=== PATIENT | male | born 1965 | race Caucasian/White ===

== ENCOUNTER 2021-06-24 23:41 | Emergency (ER) | payer OTHER ==
[~2021-06-24] VITALS: Ht 182.9 cm; Wt 79.4 kg
[~2021-06-24 23:41] MED LIST: CYCL-289 PO; CYCL100C PO; DIAZ10TA4 PO; GABA600T12 PO; OLAN5TAB3 PO; PRED5TAB PO; SERT100T PO
--- NOTE | 2021-06-24 23:51 | NUR ---
BIBRA C/O MECH FALL ADMITS TO ALCOHOL USE. +LAC ON RIGHT EAR AND DEFORMITY TO R WRIST. PT IS BREATHING EVEN AND UNLABORED PLACED ON MONITOR. MD WAS AT THE BEDSIDE FOR EVAL.
--- NOTE | 2021-06-25 00:27 | NUR ---
PT GOING TO CT
--- NOTE | 2021-06-25 03:05 | NUR ---
pt sleeping comfortably easily arousable, breathing even and unalbored. all VSS.
[2021-06-25] MEDS ORDERED: HYDR-3972 PO (05:02)
--- NOTE | 2021-06-25 05:10 | NUR ---
Patient discharged to home in stable condition. Written and verbal after care instructions given. Patient verbalizes understanding of instruction. Pt ambulated safely and was picked up by mother.
[2021-06-25 05:11] VITALS: BP 142/77
== END 2021-06-25 05:12 | disposition home or self-care (01) ==
LOC: ER 23:43
DX: S52.591A Other fractures of lower end of right radius, initial encounter for closed fracture (principal); F10.129 Alcohol abuse with intoxication, unspecified; R47.81 Slurred speech; Z60.2 Problems related to living alone; Z79.899 Other long term (current) drug therapy; W19.XXXA Unspecified fall, initial encounter; Y93.89 Activity, other specified; Y92.89 Other specified places as the place of occurrence of the external cause; Y99.8 Other external cause status; Y90.9 Presence of alcohol in blood, level not specified
CPT/HCPCS: 29125; 70450; 73110; 99284; A6403

== ENCOUNTER 2024-07-24 13:02 | Emergency (ER) | payer OTHER, MEDICAID ==
[~2024-07-24] VITALS: Ht 167.6 cm; Wt 52.2 kg
[~2024-07-24 13:02] MED LIST changes: +HYDR-3972 PO
[2024-07-24] MEDS: IV NS 0.9% 1,000 ML BAG IV ONE (14:00)
[2024-07-24 14:26] LABS: BASOPHILS % (AUTO) 0.3 % (0.0-2.0); EOSINOPHILS % (AUTO) 0.9 % (0.0-6.0); HEMATOCRIT 26 % (39-51); HEMOGLOBIN 8.8 g/dL (13.5-17.5); LYMPHOCYTES # (AUTO) 0.5 K/uL (0.8-4.8); LYMPHOCYTES % (AUTO) 21.9 % (20.0-44.0); MEAN CORPUSCULAR HEMOGLOBIN 34 PG (26.0-33.0); MEAN CORPUSCULAR HGB CONC 35 g/dl (31.0-36.0); MEAN CORPUSCULAR VOLUME 99 fL (80-96); MONOCYTES # (AUTO) 0.4 K/uL (0.1-1.30); MONOCYTES % (AUTO) 15.2 % (2.0-12.0); NEUTROPHILS # (AUTO) 1.5 K/uL (1.8-8.9); NEUTROPHILS % (AUTO) 61.7 % (43.0-81.0); PLATELET COUNT (AUTO) 151 K/uL (150-450); RED BLOOD CELL COUNT(AUTO) 2.57 MIL/uL (4.5-6.0); RED CELL DISTRIBUTION WIDTH 12.4 % (11.5-15.0); WHITE BLOOD COUNT (AUTO) 2.5 K/uL (4.3-11.0)
[2024-07-24 14:32] LABS: CREATININE 4.8 mg/dL (0.6-1.3); POTASSIUM 3.2 mmol/L (3.5-5.1)
[2024-07-24 14:47] LABS: ALBUMIN 2.5 g/dL (3.4-5.0); BILIRUBIN,DIRECT 0.3 mg/dL (0.0-0.2); BILIRUBIN,TOTAL 0.5 mg/dL (0.2-1.0); TOTAL PROTEIN, SERUM 5.3 g/dL (6.4-8.2)
[2024-07-24 18:19] LABS: APPEARANCE,URINE CLEAR (CLEAR); BILIRUBIN,URINE NEGATIVE (NEGATIVE); BLOOD, URINE NEGATIVE Ery/uL (NEGATIVE); COLOR,URINE YELLOW (YELLOW); KETONES,URINE NEGATIVE (NEGATIVE); LEUKOCYTE ESTERASE ,URINE NEGATIVE (NEGATIVE); NITRITE, URINE NEGATIVE (NEGATIVE); PH,URINE 7.5 (5.0-8.0); PROTEIN,URINE 1+ mg/dl (NEGATIVE); UGLUCOSE NEGATIVE (NEGATIVE); UROBILINOGEN,URINE 0.2 EU/dL (0.2)
[2024-07-24 18:29] VITALS: TEMP 98.6
[2024-07-24 18:29] LABS: ADD URINE CULTURE YES; BACTERIA,URINE Moderate /HPF (None Seen); RBC,URINE 0-2 /HPF (0-2); SQUAMOUS EPITHELIAL CELL,UR Rare /HPF (None Seen)
[2024-07-24 19:10] VITALS: BP 155/87; O2SAT 97
== END 2024-07-24 19:35 | disposition short-term general hospital (02) ==
LOC: ER 13:07
DX: S37.009A Unspecified injury of unspecified kidney, initial encounter (principal); R55 Syncope and collapse; E87.1 Hypo-osmolality and hyponatremia; I12.9 Hypertensive chronic kidney disease with stage 1 through stage 4 chronic kidney disease, or unspecified chronic kidney disease; J98.4 Other disorders of lung; N18.9 Chronic kidney disease, unspecified; Z79.52 Long term (current) use of systemic steroids; Z79.621 Long term (current) use of calcineurin inhibitor; Z79.899 Other long term (current) drug therapy; Z94.0 Kidney transplant status; X58.XXXA Exposure to other specified factors, initial encounter; Y93.89 Activity, other specified; Y92.89 Other specified places as the place of occurrence of the external cause; Y99.8 Other external cause status
CPT/HCPCS: 99285; 96360; 70450; 71045; 93005; 85025; 80048; 87086; 80076; 81001; 36415; 84484; 83880; J7030; A6403